=== PATIENT | male | born 1970 | race Caucasian/White ===

== ENCOUNTER 2020-09-02 12:53 | Emergency (ER) | payer MEDICARE ==
[2020-09-02 14:45] LABS: HEMOGLOBIN 17.1 gm/dl (14.0-17.5); RED BLOOD COUNT 5.86 M/UL (4.20-5.50); WHITE BLOOD COUNT 11.7 K/UL (4.5-11.0)
[2020-09-02 15:02] LABS: BUN/CREATININE RATIO 22 (0-10)
== END 2020-09-02 17:30 | disposition home or self-care (01) ==
LOC: ER1 12:53
PROVIDERS: Emergency Medicine
DX: R51.9 Headache, unspecified (principal); R20.2 Paresthesia of skin; I10 Essential (primary) hypertension; E11.9 Type 2 diabetes mellitus without complications; F17.200 Nicotine dependence, unspecified, uncomplicated; Z88.2 Allergy status to sulfonamides; Z88.5 Allergy status to narcotic agent; Z91.030 Bee allergy status; Z20.822 Contact with and (suspected) exposure to COVID-19
CPT/HCPCS: 70450; 71045; 80053; 85025; 85610; 85652; 85730; 86140; 87040; 99284; U0002